=== PATIENT | female | born 1940 | race Caucasian/White ===

== ENCOUNTER 2016-11-12 20:36 | Observation (INO) | payer OTHER, MEDICARE ==
[~2016-11-12] VITALS: Ht 154.9 cm; Wt 52.0 kg
[~2016-11-12 20:36] MED LIST: ACIDOPHILUS LA1 EAC1 PO; ALPRAZOLAM0.25 MG PO; APRISO0.375 GM PO; ASPIR-LOW81 MG PO; ASPIRIN81 M1 PO; CALCIUM + VITA1 EACH PO; CARDIZEM CD120 MG PO; DIOVAN80 MG PO; ELIQUIS5 MG PO; ESTRADIOL0.5 MG PO; HALFPRIN162 MG PO; HI-CAL250 MG PO; MULTI VITAMIN1 EACH PO; OSTERA TABLET1 EACH PO; PROBIOTIC1 EAC1 PO; Protonix PO; TAMBOCOR100 MG PO; Theragran PO; XANAX0.25 MG PO; XANAX0.5 MG PO; fish oil
[2016-11-12 21:56] LABS: MCH 31.4 PG (29.0-34.0); MCHC 33.9 G/DL (30.0-36.0); MCV 92.5 FL (83-99); MEAN PLAT.VOLUME 11.6 uM^3 (9.5-12.4); PLATELET COUNT 147 K/uL (156-360); RBC DIS.WIDTH-CV 12.6 % (11.8-14.6); RBC DIS.WIDTH-SD 42.7 % (39-53); RED BLOOD COUNT 3.89 M/uL (3.80-5.20); WHITE BLOOD COUNT 3.5 K/uL (4.1-10.2)
[2016-11-12 21:57] LABS: CHLORIDE 107 mEq/L (99-109); POTASSIUM 4.4 mEq/L (3.7-5.4); SODIUM 142 mEq/L (136-147)
[2016-11-12 21:59] LABS: GLUCOSE 114 mg/dL (70-99)
[2016-11-12 22:00] LABS: ANION GAP 9 MEQ/L (2-14)
[2016-11-12 22:02] LABS: GFR ESTIMATE (CALCULATED) 57 mL/min/
[2016-11-12 22:03] LABS: UREA NITROGEN (BUN) 17 mg/dL (9-23)
[2016-11-12 22:08] LABS: TROP-I INTERPRETATION NEGATIVE; TROPONIN-I < 0.01 ng/mL (0.0-0.30)
[2016-11-12] MEDS ORDERED: PROBIOTIC1 EAC1 PO (22:41)
[2016-11-12] MEDS ORDERED: FISH OIL300 MG PO (22:42)
[2016-11-12 22:55] LABS: INTER. NORMALIZED RATIO 1.1; PROTHROMBIN TIME 11.5 (9.2-11.2); PTT 30.3 (25-32)
[2016-11-13] MEDS ORDERED: DAILY VITE1 EAC1 PO (00:30)
[2016-11-13 04:02] VITALS: BP 137/79
[2016-11-13 04:59] LABS: TROP-I INTERPRETATION NEGATIVE; TROPONIN-I < 0.01 ng/mL (0.0-0.30)
[2016-11-13 06:55] VITALS: BP 166/78
[2016-11-13 10:55] LABS: TROP-I INTERPRETATION NEGATIVE; TROPONIN-I < 0.01 ng/mL (0.0-0.30)
== END 2016-11-13 13:19 | disposition home or self-care (01) ==
LOC: EME 20:36 → EDOF 11-13 02:47 → 5WEST 11-13 03:14
PROVIDERS: Family Medicine
DX: I48.0 Paroxysmal atrial fibrillation (principal); Z79.01 Long term (current) use of anticoagulants; R00.2 Palpitations; R53.83 Other fatigue; R79.89 Other specified abnormal findings of blood chemistry; I10 Essential (primary) hypertension
CPT/HCPCS: 71020; 80048; 83735; 83880; 84484; 85027; 85610; 85730; 93005; 99281; 99285; G0378

== ENCOUNTER 2018-05-21 16:53 | Emergency (ER) | payer OTHER, MEDICARE ==
[~2018-05-21] VITALS: Ht 154.9 cm; Wt 54.4 kg
[~2018-05-21 16:53] MED LIST changes: +DAILY VITE1 EAC1 PO; +FISH OIL300 MG PO
[2018-05-21 18:25] LABS: HEMATOCRIT 34.4 % (36.0-46.0); HEMOGLOBIN 11.7 G/DL (11.9-15.5); MCH 31.6 PG (29.0-34.0); PLATELET COUNT 103 K/uL (156-360); RBC DIS.WIDTH-CV 11.8 % (11.8-14.6); RBC DIS.WIDTH-SD 40.2 % (39-53); WHITE BLOOD COUNT 3.4 K/uL (4.1-10.2)
[2018-05-21 18:35] LABS: CHLORIDE 104 mEq/L (99-109); POTASSIUM 4.6 mEq/L (3.7-5.4); SODIUM 140 mEq/L (136-147)
[2018-05-21 18:37] LABS: GLUCOSE 94 mg/dL (70-99)
[2018-05-21 18:41] LABS: GFR ESTIMATE (CALCULATED) 57 mL/min/
[2018-05-21 18:42] LABS: UREA NITROGEN (BUN) 17 mg/dL (9-23)
[2018-05-21 18:47] LABS: TROP-I INTERPRETATION NEGATIVE; TROPONIN-I < 0.01 ng/mL (0.0-0.30)
[2018-05-21] MEDS ORDERED: ZITHROMAX250 MG PO (18:54)
[2018-05-21 19:41] VITALS: BP 172/82
== END 2018-05-21 19:42 | disposition home or self-care (01) ==
LOC: EME 16:53
PROVIDERS: Emergency Medicine
DX: J18.9 Pneumonia, unspecified organism (principal); I10 Essential (primary) hypertension; F41.9 Anxiety disorder, unspecified; Z85.828 Personal history of other malignant neoplasm of skin; Z88.5 Allergy status to narcotic agent
CPT/HCPCS: 71046; 80048; 84484; 85027; 93005; 99281; 99283